=== PATIENT | male | born 1965 | race Caucasian/White ===

== ENCOUNTER 2016-10-27 11:09 | Day surgery (SDC) | payer OTHER ==
[2016-09-28 11:24] VITALS: BMI 23.0
[2016-09-28 11:36] VITALS: BMI 23.0
--- NOTE | 2016-09-28 11:50 | PAT Medication Instructions ---
Service Date Sep 28, 2016. Current Home Medication List Ibuprofen Tab (Advil), 600 MG PO PRN Medication Instructions For Your Scheduled Surgery - Hold the following medications the morning of surgery: Ibuprofen Tab (Advil), 600 MG PO PRN (not told to stop by surgeon) If you have any questions please call us at [phone] or [phone] ( [place]) or [phone]
[2016-09-28 12:21] LABS: BASO % 0.4 %; BASO ABS # 0.03 K/uL (0-0.2); COMPLETE YES; EOS % 1.1 %; HEMATOCRIT 41.3 % (42-52); IG% 0.4 %; LYMPH % 34.2 %; MEAN CELL VOLUME 86.6 fL (80-100); MEAN CORPUSCULAR HEMOGLOBIN 29.4 pg (25-34); MEAN CORPUSCULAR HGB CONC 33.9 g/dl (32-36); MEAN PLATELET VOLUME 10.9 fL (7.4-10.4); MONO % 7.5 %; NEUT % 56.4 %; PLATELET COUNT 270 K/uL (130-400); RED BLOOD COUNT 4.77 M/uL (4.7-6.1)
[2016-09-28 12:32] LABS: URINE APPEARANCE CLEAR (CLEAR); URINE BILIRUBIN NEG (NEG); URINE COLOR YELLOW; URINE EPITHELIAL CELL AUTO 0-5 /lpf (0-5); URINE NITRITE NEG (NEG); URINE SPECIFIC GRAVITY 1.011 (1.000-1.030); UROBILINOGEN NEG (NEG)
[2016-09-28 12:34] LABS: MANUAL MICROSCOPIC REQUIRED? NO; REVIEW REQ? NO
--- NOTE | 2016-09-28 12:38 | DIAGNOSTIC IMAGING REPORT ---
CHEST PREADMISSION(PA/LAT) CLINICAL HISTORY: Preoperative chest COMPARISON STUDY: No previous studies for comparison. FINDINGS: The cardiac and mediastinal contours are normal. There is no evidence of focal pulmonary consolidation. There is no evidence of failure. No pleural effusions are visualized.[ IMPRESSION: No active disease in the chest. Electronically signed by: Chaz Tovar M.D. 09/28/2016 12:36 PM Dictated Date/Time: 09/28/2016 12:36 PM
[2016-09-28 12:48] LABS: BUN/CREATININE RATIO 15.8 (10-20); CALCIUM 9.2 mg/dl (8.5-10.1); CREATININE 0.93 mg/dl (0.60-1.40); POTASSIUM 4.7 mmol/L (3.5-5.1)
--- NOTE | 2016-10-25 09:46 | HISTORY & PHYSICAL EXAMINATION ---
DATE OF ADMISSION: 10/27/2016 HISTORY OF PRESENT ILLNESS: The patient presents to our office with complaint of back pain down the left leg to his foot. This started in June 2016 when he was moving a car bench. He has had pain since. He has trialed physical therapy without relief. He has tried deep tissue massage with mild temporary relief. He states his left leg pain is constant, but worse at night. He has not noticed weakness. Takes Advil for pain control. Denies numbness, tingling or paresthesias. PAST MEDICAL HISTORY: None listed. PAST SURGICAL HISTORY: Hernia repair. ALLERGIES: None listed. MEDICATIONS: None listed. FAMILY HISTORY: Significant for arthritis. SOCIAL HISTORY: Socially denies tobacco history. Denies alcohol history. He is working. REVIEW OF SYSTEMS: Significant for back and leg pain. PHYSICAL EXAMINATION: HEENT: Speech appropriate. CARDIOPULMONARY: No gross abnormalities. ABDOMEN: Soft, nontender. GENITOURINARY: Deferred. NEUROLOGIC: Cranial nerves II through XII grossly intact. MUSCULOSKELETAL: He moves easily around the room. He has positive straight leg raising on the left. No focal atrophy. Neurovascularly intact. ASSESSMENT: Severe spinal stenosis L4-L5, left disk herniation L5-S1 and herniated nucleus pulposus L5-S1. PLAN: At this point in time, surgery would require lumbar laminectomy L5-S1 on the left. Risks, benefits, pros, cons, and alternatives were outlined in detail. The patient would like to proceed with the above-mentioned surgical planning.
[~2016-10-27] VITALS: Ht 188 cm; Wt 82.6 kg
--- NOTE | 2016-10-27 07:29 | History & Physical Bridge Note ---
H&P Re-Evaluation Bridge Note: I have examined the patient, reviewed the History & Physical and in the interval since the performance of the History & Physical I have noted the following changes of clinical significance: No changes noted
[~2016-10-27 11:09] MED LIST: CEFAZOLIN 2000 MG/60 ML D5W IV SCH; IBUP-103 PO; LACTATED RINGER'S 1000ML 1,000 ML IV SCH
[2016-10-27 11:40] VITALS: BP 154/87; PULSE 77; TEMP 36.9; O2SAT 98; Ht 188 cm; Wt 82.6 kg
[2016-10-27] MEDS ORDERED: MIDAZOLAM HCL 1 MG/ML 2ML VIAL ONE (12:19)
[2016-10-27] MEDS ORDERED: ROCURONIUM BROMIDE 10 MG/ML 5 ML VIAL ONE (12:19)
[2016-10-27] MEDS ORDERED: ONDANSETRON INJ 2 MG/ML 2 ML VIAL ONE (12:19)
[2016-10-27] MEDS ORDERED: FENTANYL CITRATE INJ 50 MCG/1 ML 2 ML VIAL ONE (12:19)
[2016-10-27] MEDS ORDERED: DEXAMETHASONE SOD INJ 4 MG/ML VIAL ONE (12:19)
[2016-10-27] MEDS ORDERED: LIDOCAINE HCL 2% 2 ML VIAL (20MG/ML) ONE (12:19)
[2016-10-27] MEDS ORDERED: PROPOFOL IV EMULSION 10 MG/ML 20 ML VIAL IV ONE (12:19)
[2016-10-27] MEDS ORDERED: BUPIVACAINE/EPINEPHRINE 0.5% MPF 1:200,000 30 ML VIAL ONE (13:20)
[2016-10-27] MEDS ORDERED: SODIUM CHLORIDE 0.9% PF 50 ML VIAL ONE (13:20)
[2016-10-27] MEDS ORDERED: BACITRACIN 50000 UNIT VIAL ONE (13:20)
[2016-10-27] MEDS ORDERED: HYDROmorphone INJ 2 MG/ML SYR/VIAL ONE (13:52)
[2016-10-27] MEDS ORDERED: GLYCOPYRROLATE INJ 0.2 MG/ML VIAL ONE (14:00)
[2016-10-27] MEDS ORDERED: NEOSTIGMINE METHYLSULFATE 5 MG/5 ML SYR ONE (14:00)
[2016-10-27] MEDS ORDERED: ULT50X PO (14:37)
--- NOTE | 2016-10-27 14:39 | Discharge Instructions ---
Discharge Instructions Admission Reason for Admission: Lumbar Spinal Stenosis Discharge Discharge Diagnosis / Problem: stenosis Discharge Goals Goal(s): Improve function Activity Recommendations Activity Limitations: per Instructions/Follow-up section . Instructions / Follow-Up Instructions / Follow-Up ACTIVITY RECOMMENDATIONS: SELF CARE INSTRUCTIONS AFTER A LAMINECTOMY 1. No prolonged sitting (less than 30 minutes for the first 3 weeks after surgery). 2. No bending, lifting more than 5 pounds, or twisting (roll like a log when turning in bed). 3. You may shower 3 days after surgery if no drainage from wound. Thoroughly dry wound. Do not soak in the tub. 4. Please walk as much as you can for exercise. Gradually increase the distance that you walk as your endurance increases. 5. You may drive in 7-10 days if you are comfortable and no longer requiring pain medications. SPECIAL CARE INSTRUCTIONS: VERY IMPORTANT TO READ AND REVIEW A. Your surgical incision has been closed with a cosmetic suture under the skin that will dissolve in about 6 weeks. In 14 days, you can use a pair of clean scissors and cut the suture that is left outside of the skin at the ends of your incision. B. Complications are uncommon, but please contact us if you have any signs or symptoms of: 1. wound infection (fever higher than 102.5 degrees F, redness, separation of wound, drainage, or increasing pain from the incision) 2. blood clots in legs (pain, swelling, redness and warmth in legs) 3. urinary tract infection (fever higher than 102.5 degrees, burning upon urination or increased frequency of urination) 4. nerve problems (inability to walk on your toes or heels, numbness, loss of bowel or bladder control) 5. any other symptoms that concern you. C. Please call the office at if you have any concerns or questions about your operation or recovery. MANAGING PAIN AFTER SPINAL SURGERY 1. Narcotic medication is intended for short-term use and will be provided for surgical pain. Surgical pain usually lasts for a period of 4-6 weeks. Narcotic medication includes Percocet, Vicodin, Darvocet, Tylenol #3 or Lortab. 2. Longer-term pain is more appropriately treated with non-narcotic medication such as Tylenol ES. 3. Muscle spasm is not appropriately treated with narcotics. Muscle relaxers such as Soma, Flexeril or Skelaxin can be used along with Tylenol ES. 4. Remember that we all live with some "aches and pains". This is not unusual or uncommon after an injury or as we get older. 5. We will provide appropriate medication within the normal guidelines of their prescribed use. We will also be very cautious and aware of potential abuse and extended duration of patients' medication needs. 6. Please allow 2-3 days to process refills. Prescriptions will not be mailed but must be picked up at the office. FOLLOW UP VISIT: Keep your scheduled follow-up appointment. Any questions, please call the office at . Current Hospital Diet Patient's current hospital diet: Discharge Diet Recommended Diet: Regular Diet Procedures Procedures Performed: L5-S1 Microdiscectomy - Posterior Incision, Removal of Herniated Disc Left Side Pending Studies Studies pending at discharge: no Medical Emergencies . Who to Call and When: Medical Emergencies: If at any time you feel your situation is an emergency, please call 911 immediately. . Non-Emergent Contact Non-Emergency issues call your: Primary Care Provider . "Provider Documentation" section prepared by Cb Bean. VTE Core Measure Inpt VTE Proph given/why not?: Tone Gonzalez, SCD's
[2016-10-27] MEDS ORDERED: ACETAMINOPHEN 650 MG SUPP PR PRN (14:45)
[2016-10-27] MEDS ORDERED: KETOROLAC TROMETHAMINE 30 MG/ML VIAL IV. PRN (14:45)
[2016-10-27] MEDS ORDERED: ACETAMINOPHEN 325 MG TAB PO PRN (14:45)
[2016-10-27] MEDS ORDERED: HYDROmorphone INJ 2 MG/ML SYR/VIAL IV PRN (14:45)
--- NOTE | 2016-10-27 14:47 | DIAGNOSTIC IMAGING REPORT ---
LUMBAR SPINE, INTRAOPERATIVE FLUOROSCOPY HISTORY: L5-S1 microdiscectomy. FLUOROSCOPY TIME: 4 seconds. FINDINGS: Intraoperative fluoroscopy was provided for the lumbar spine. A single fluoroscopic spot image was obtained. There is a surgical instrument posterior to the L5-S1 disc space IMPRESSION: Fluoroscopy provided for a L5-S1 microdiscectomy. Electronically signed by: Omer Hunt M.D. 10/27/2016 2:46 PM Dictated Date/Time: 10/27/2016 2:45 PM
[2016-10-27] MEDS ORDERED: HydrALAZINE HCL 20 MG/ML VIAL ONE (14:52)
--- NOTE | 2016-10-27 14:57 | Anesthesiology Progress Note ---
Anesthesia Post Op Note Date & Time Oct 27, 2016 at 14:57 Vital Signs Pain Intensity: 0 Vital Signs Past 12 Hours Date Time Temp Pulse Resp B/P Pulse Ox O2 Delivery O2 Flow Rate FiO2 10/27/16 14:41 36.4 72 12 158/97 100 Mask 10 10/27/16 11:40 36.9 77 18 154/87 98 Room Air Notes Mental Status: alert / awake / arousable, participated in evaluation Pt Amnestic to Procedure: Yes Nausea / Vomiting: adequately controlled Pain: adequately controlled Airway Patency, RR, SpO2: stable & adequate BP & HR: stable & adequate Hydration State: stable & adequate Anesthetic Complications: no major complications apparent
[2016-10-27] MEDS ORDERED: NURSING VERBAL MED ORDER ONE (15:00)
[2016-10-27 16:30] VITALS: BP 147/88; PULSE 69; TEMP 36.6; O2SAT 95
--- NOTE | 2016-10-27 17:07 | OPERATIVE REPORT ---
DATE OF OPERATION: 10/27/2016 PREOPERATIVE DIAGNOSIS: Herniated nucleus pulposus L5-S1 on the left. POSTOPERATIVE DIAGNOSIS: Same. PROCEDURE PERFORMED: Lumbar laminotomy, excision of herniated fragment L5-S1 on the left. SURGEON: Dr. Cb Bean. GLUE SPECIALTY SUPERVISOR: Julieta Buenrostro PA-C. Due to the complex nature of the procedure, the entire surgery was performed with the insurance claims assistant of Julieta Buenrostro PA-C. The assistant manager of operations, under direct supervision, was involved in the actual performance of all aspects of the surgical procedure including hemostasis, tissue retraction and incision, instrument management, patient positioning, and wound closure. ANESTHESIA: General. DISPOSITION: The patient was awakened and taken to PACU in stable condition. HISTORY OF PATIENT'S PROBLEMS: This is a 51-year-old male who presents with above-mentioned diagnosis. After failing an extensive course of nonoperative care, elected to undergo the above-mentioned procedure. Risks, benefits, pros, cons, and alternatives were outlined in detail preoperatively. DESCRIPTION OF PROCEDURE: The patient was met with preoperatively, case discussed dresser and questions were addressed. At that point patient was taken back to operative suite and after undergoing successful general intubation by the department of anesthesia, was placed in prone position on Kodi table atop Blane frame. All bony prominences were well padded and the eyes were inspected to ensure there was no external pressure placed upon them. At this point, the lumbar spine was prepped and draped in normal sterile fashion. With the assistance of fluoroscopy, we identified the 5-1 disc space and sharp dissection with the assistance of Bovie cautery performed down to and exposing the interlaminar space at L5-S1, left. A self-retaining retractor was placed. I then performed a small laminotomy excising the lateral portion of the medial facet and ligamentum flavum to expose a markedly compress traversing L5-S1 nerve root. This mobilized medially. All loose fragments were addressed and all compression removed. I did ____ small annular tears, but no loose fragments. Incision was then copiously irrigated and closed with 1 Vicryl in the fascia, 2-0 Vicryl subcutaneously, 4-0 Monocryl for final skin closure. Steri-Strips and sterile dressing placed. The patient was awakened and taken to PACU in stable condition. I attest to the content of the Intraoperative Record and any orders documented therein. Any exceptio ns are noted below.
== END 2016-10-27 17:20 | disposition home or self-care (01) ==
LOC: C.ACU 11:09
PROVIDERS: ATTEND Orthopaedic Surgery Orthopaedic Surgery of the Spine
DX: M51.27 Other intervertebral disc displacement, lumbosacral region (principal); M48.06 Spinal stenosis, lumbar region; Z98.890 Other specified postprocedural states